=== PATIENT | male | born 1960 | race Caucasian/White ===

== ENCOUNTER 2017-07-26 23:45 | Emergency (ER) | payer OTHER ==
[2017-07-27 02:28] LABS: BUN/Creatinine Ratio 15.3 (8-20); Calcium 8.8 mg/dL (8.6-10.3); EGFR African American 118.7 (>60); EGFR Non-African American 92.3 (>60); Globulin 3.1 g/dL (2-4); Total Bilirubin 0.5 mg/dL (0.2-1.0); Total Protein 7.1 g/dL (6.4-8.9)
[2017-07-27 02:30] LABS: Troponin I 0.01 ng/mL (<0.04)
[2017-07-27] MEDS ORDERED: NS 0.9% 1000 ML* 2,000 ML IV ONE (03:14)
[2017-07-27] MEDS ORDERED: Potassium Chlor TAB* 20 MEQ TAB.ER PO ONE (03:14)
[2017-07-27 04:06] LABS: Hematocrit 42 % (42-52); Mean Corpuscular HGB Conc 35 g/dl (31-36); Mean Corpuscular Hemoglobin 33 pg (27-31); Mean Corpuscular Volume 93 fL (80-94); Mean Platelet Volume 8 um3 (7.4-10.4); Red Blood Count 4.58 10^6/ul (4.0-5.4); Red Cell Distribution Width 14 % (10.5-15); White Blood Count 6.6 10^3/ul (3.5-10.8)
--- NOTE | 2017-07-27 05:16 | ED ---
Tanisha Hawkins Abhishek, scribed for Carlos A Santamaria on 07/27/17 at 0505 . Syncope/Near Syncope - HPI Summary HPI Summary: This patient is a year old M presenting to [facility] accompanied by female with a chief complaint of syncope since today. The CC is described as 4 episodes each lasting about 30 seconds. The patient rates the pain 0/10 in severity. Symptoms aggravated by cough and expiration. Symptoms alleviated by nothing. Pt states clinched jaw during syncope. Patient reports LOC from syncope, and vomiting. Pt denies body aches and pain. - History Of Current Complaint Chief Complaint: EDSyncope Time Seen by Provider: 07/26/17 23:56 Hx Obtained From: Patient Onset/Duration: Sudden Onset Timing: Intermittent Episode Lasting - 30 seconds Context: Witnessed Activity At Onset: Other - coughing and laughing Aggravating Factor(s): Nothing Alleviating Factor(s): Nothing Associated Signs And Symptoms: Other - "clinched jaw" during syncope Frequency: Episodes x___ - 4 - Risk Factors Cardiac Risk Factors: Elevated Lipids - Allergies/Home Medications Allergies/Adverse Reactions: Allergies Allergy/AdvReac Type Severity Reaction Status Date / Time No Known Allergies Allergy Verified 01/07/16 15:12 PMH/Surg Hx/FS Hx/Imm Hx Cardiovascular History: Reports: Hx Hypercholesterolemia, Hx Hypertension Musculoskeletal History: Denies: Hx Rheumatoid Arthritis, Hx Osteoporosis - Surgical History Surgery Procedure, Year, and Place: tonsillectomy Infectious Disease History: No Infectious Disease History: Denies: History Other Infectious Disease, Traveled Outside the [place] in Last 30 Days - Family History Known Family History: Positive: Hypertension - Social History Alcohol Use: Occasionally Substance Use Type: Reports: None Smoking Status (MU): Never Smoked Tobacco Review of Systems Constitutional: Negative Eyes: Negative Positive: Other - "clinched jaw" Respiratory: Negative Positive: Vomiting Genitourinary: Negative Positive: Other - Negative body aches and pain Skin: Negative Positive: Syncope - LOC Psychological: Normal All Other Systems Reviewed And Are Negative: Yes Physical Exam - Summary Physical Exam Summary: Appearance: Well appearing, no pain distress Skin: warm, dry, reflects adequate perfusion Head/face: normal Eyes: EOMI, NEEL ENT: normal Neck: supple, nontender Respiratory: CTA, breath sounds present Cardiovascular: RRR, pulses symmetrical Abdomen: nontender, soft Bowel: present Musculoskeletal: normal, strength/ROM intact Neuro: normal, sensory motor intact, A&Ox3 Triage Information Reviewed: Yes Vital Signs On Initial Exam: Initial Vitals Temp Pulse Resp BP Pulse Ox 97.7 F 71 16 110/58 94 07/26/17 23:54 07/26/17 23:54 07/26/17 23:54 07/26/17 23:54 07/26/17 23:54 Vital Signs Reviewed: Yes Diagnostics - Vital Signs Vital Signs Temp Pulse Resp BP Pulse Ox 07/26/17 23:54 97.7 F 69 16 110/58 95 - Laboratory Lab Results: Lab Results 07/27/17 07/27/17 07/27/17 Range/Units 01:07 01:07 01:07 WBC (3.5-10.8) 10^3/ul RBC (4.0-5.4) 10^6/ul Hgb (14.0-18.0) g/dl Hct (42-52) % MCV (80-94) fL MCH (27-31) pg MCHC (31-36) g/dl RDW (10.5-15) % Plt Count (150-450) 10^3/ul MPV (7.4-10.4) um3 Neut % (Auto) (38-83) % Lymph % (Auto) (25-47) % Dent % (Auto) (1-9) % Eos % (Auto) (0-6) % Baso % (Auto) (0-2) % Absolute Neuts (auto) (1.5-7.7) 10^3/ul Absolute Lymphs (auto) (1.0-4.8) 10^3/ul Absolute Monos (auto) (0-0.8) 10^3/ul Absolute Eos (auto) (0-0.6) 10^3/ul Absolute Basos (auto) (0-0.2) 10^3/ul Absolute Nucleated RBC 10^3/ul Nucleated RBC % INR (Anticoag Therapy) 0.92 (0.89-1.11) APTT 31.0 (26.0-36.3) seconds Sodium 128 L (133-145) mmol/L Potassium 3.0 L (3.5-5.0) mmol/L Chloride 95 L (101-111) mmol/L Carbon Dioxide 23 (22-32) mmol/L Anion Gap 10 (2-11) mmol/L BUN 13 (6-24) mg/dL Creatinine 0.85 (0.67-1.17) mg/dL Est GFR ( Amer) 118.7 (>60) Est GFR (Non-Af Amer) 92.3 (>60) BUN/Creatinine Ratio 15.3 (8-20) Glucose 132 H (70-100) mg/dL Calcium 8.8 (8.6-10.3) mg/dL Total Bilirubin 0.50 (0.2-1.0) mg/dL AST 25 (13-39) U/L ALT 35 (7-52) U/L Alkaline Phosphatase 81 (34-104) U/L Troponin I 0.01 (<0.04) ng/mL B-Natriuretic Peptide 7 ( - 100) pg/mL Total Protein 7.1 (6.4-8.9) g/dL Albumin 4.0 (3.2-5.2) g/dL Globulin 3.1 (2-4) g/dL Albumin/Globulin Ratio 1.3 (1-3) 07/27/17 Range/Units 03:50 WBC 6.6 (3.5-10.8) 10^3/ul RBC 4.58 (4.0-5.4) 10^6/ul Hgb 15.0 (14.0-18.0) g/dl Hct 42 (42-52) % MCV 93 (80-94) fL MCH 33 H (27-31) pg MCHC 35 (31-36) g/dl RDW 14 (10.5-15) % Plt Count 213 (150-450) 10^3/ul MPV 8 (7.4-10.4) um3 Neut % (Auto) 60.7 (38-83) % Lymph % (Auto) 27.4 (25-47) % Dent % (Auto) 7.1 (1-9) % Eos % (Auto) 3.4 (0-6) % Baso % (Auto) 1.4 (0-2) % Absolute Neuts (auto) 4.0 (1.5-7.7) 10^3/ul Absolute Lymphs (auto) 1.8 (1.0-4.8) 10^3/ul Absolute Monos (auto) 0.5 (0-0.8) 10^3/ul Absolute Eos (auto) 0.2 (0-0.6) 10^3/ul Absolute Basos (auto) 0.1 (0-0.2) 10^3/ul Absolute Nucleated RBC 0.01 10^3/ul Nucleated RBC % 0.1 INR (Anticoag Therapy) (0.89-1.11) APTT (26.0-36.3) seconds Sodium (133-145) mmol/L Potassium (3.5-5.0) mmol/L Chloride (101-111) mmol/L Carbon Dioxide (22-32) mmol/L Anion Gap (2-11) mmol/L BUN (6-24) mg/dL Creatinine (0.67-1.17) mg/dL Est GFR ( Amer) (>60) Est GFR (Non-Af Amer) (>60) BUN/Creatinine Ratio (8-20) Glucose (70-100) mg/dL Calcium (8.6-10.3) mg/dL Total Bilirubin (0.2-1.0) mg/dL AST (13-39) U/L ALT (7-52) U/L Alkaline Phosphatase (34-104) U/L Troponin I (<0.04) ng/mL B-Natriuretic Peptide ( - 100) pg/mL Total Protein (6.4-8.9) g/dL Albumin (3.2-5.2) g/dL Globulin (2-4) g/dL Albumin/Globulin Ratio (1-3) Result Diagrams: 07/27/17 03:50 07/27/17 01:07 Lab Statement: Any lab studies that have been ordered have been reviewed, and results considered in the medical decision making process. - Radiology Chest X-ray Radiology Interpretation Completed By: ED Physician - Negative - CT Brain CT CT Interpretation Completed By: Radiologist - Brain CT reveals no acute intracranial pathology ED physician has reviewed this radiology report and agrees. - EKG 0024 EKG Interpretation: sinus rhythm, and no acute changes Course/Dx Course Of Treatment: This patient is a 57 year old M presenting to [facility] accompanied by female with a chief complaint of syncope since today. The CC is described as 4 episodes each lasting about 30 seconds. Pt states clinched jaw during syncope. Patient reports LOC from syncope, and vomiting. Pt denies body aches and pain. An EKG reveals sinus rhythm and no acute changes. CXR reveals negative findings. Brain CT reveals no acute intracranial pathology. Pt will be discharged with follow up from PCP within 3 days. Dx is cough, vasovagal syncope, and hypokalemia. Pt is agreeable with this plan. - Diagnoses Differential Diagnosis/HQI/PQRI: Positive: Cerebral Vascular Accident, Dysrhythmia, Hypovolemia, Transient Ischemic Attack, Vasovagal Episode Provider Diagnoses: Hypokalemia, Vasovagal syncope, Cough Discharge - Discharge Plan Condition: Stable Disposition: HOME Prescriptions: Benzonatate [TESSALON 200 MG CAP] 200 mg PO TID #20 cap Patient Education Materials: Hypokalemia (ED), Syncope (ED), Cold Symptoms (ED) Referrals: Non Staff,Doctor [Primary Care Provider] - (Follow up with PCP within 3 days.) The documentation as recorded by the Tanisha liao Abhishek accurately reflects the service I personally performed and the decisions made by Hina tiwari Emmanuel.
[2017-07-27 05:35] VITALS: BP 117/63
--- NOTE | 2017-07-27 07:52 | RAD ---
HISTORY: Cough COMPARISONS: None VIEWS: 4: Frontal dual-energy and lateral views of the chest. FINDINGS: CARDIOMEDIASTINAL SILHOUETTE: The cardiomediastinal silhouette is normal. MAURICIO: The mauricio are normal. PLEURA: The costophrenic angles are sharp. No pleural abnormalities are noted. LUNG PARENCHYMA: The lungs are clear. ABDOMEN: The upper abdomen is clear. There is no subphrenic gas. BONES AND SOFT TISSUES: No bone or soft tissue abnormalities are noted. OTHER: None. IMPRESSION: NO ACTIVE CARDIOPULMONARY DISEASE.
--- NOTE | 2017-07-27 07:54 | RAD ---
HISTORY: Syncope, seizure COMPARISONS: None TECHNIQUE: Multiple contiguous axial CT scans were obtained of the head without intravenous contrast. FINDINGS: HEMORRHAGE/INFARCT: There is no hemorrhage or acute infarct. MASSES/SHIFT: There is no mass or shift. EXTRA-AXIAL SPACES: There are no extra-axial fluid collections. SULCI AND VENTRICLES: The sulci and ventricles are normal in size and position for the patient's stated age. CEREBRUM: There are no focal parenchymal abnormalities. BRAINSTEM: There are no focal parenchymal abnormalities. CEREBELLUM: There are no focal parenchymal abnormalities. VESSELS: The vessels are grossly normal. PARANASAL SINUSES: The paranasal sinuses are clear. There is a small right mastoid effusion. ORBITS: The orbits are unremarkable. BONES AND SOFT TISSUE: No bone or soft tissue abnormalities are noted. OTHER: None IMPRESSION: NO ACUTE INTRACRANIAL PATHOLOGY.
== END 2017-07-27 05:41 | disposition home or self-care (01) ==
LOC: ED 23:45
DX: E87.6 Hypokalemia (principal); R55 Syncope and collapse; R05 Cough; R11.10 Vomiting, unspecified
CPT/HCPCS: 36415; 70450; 71020; 80053; 83880; 84484; 85025; 85610; 85730; 93005; 99283; A9270-GY

== ENCOUNTER 2017-10-07 15:52 | Emergency (ER) | payer OTHER ==
[2017-10-07 16:04] VITALS: BP 167/100
--- NOTE | 2017-10-07 16:24 | UC ---
Cardiac HPI - HPI Summary HPI Summary: 57 yo male with a one month hx of right lower chest pain which occurs if he bends over or twists pain lasts 1-2 seconds occurs 3-5 x day uses treadmill with dyspnea or pain for years he has felt winded going up steep hills...this has not worsened rare cough no fever - History of Current Complaint Chief Complaint: UCChestPain Stated Complaint: CHEST PAIN,SOB,COUGH Time Seen by Provider: 10/07/17 16:02 Hx Obtained From: Patient Onset/Duration: Gradual Onset, Lasting Weeks Timing: Intermittent Episodes Lasting: - 1-2 seconds Initial Severity: Mild Current Severity: None Pain Intensity: 0 Chest Pain Location: Discrete at: - right lower ches Character: Sharp/Stabbing Aggravating Factor(s): Other - 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 Alleviating Factor(s): Position Associated Signs & Symptoms: Positive: Chest Pain - Allergy/Home Medications Allergies/Adverse Reactions: Allergies Allergy/AdvReac Type Severity Reaction Status Date / Time No Known Allergies Allergy Verified 10/07/17 16:04 Home Medications: Home Medications Aspirin [Aspirin 81 MG TAB] 81 mg PO DAILY 10/07/17 [History Confirmed 10/07/17] PMH/Surg Hx/FS Hx/Imm Hx Previously Healthy: Yes - gout Cardiovascular History: Hypertension - Surgical History Surgical History: Yes Surgery Procedure, Year, and Place: tonsillectomy - Family History Known Family History: Positive: Hypertension - Social History Alcohol Use: Daily Alcohol Amount: 1-2 beers per day Substance Use Type: None Smoking Status (MU): Never Smoked Tobacco - Immunization History Most Recent Influenza Vaccination: 2017 Review of Systems Constitutional: Negative Skin: Negative Eyes: Negative ENT: Negative Respiratory: Negative Cardiovascular: Chest Pain Gastrointestinal: Negative Genitourinary: Negative Motor: Negative Neurovascular: Negative Musculoskeletal: Negative Neurological: Negative Psychological: Negative Is Patient Immunocompromised?: No All Other Systems Reviewed And Are Negative: Yes Physical Exam Triage Information Reviewed: Yes Appearance: Well-Appearing, No Pain Distress, Well-Nourished Vital Signs: Initial Vital Signs Temp 97.7 F 10/07/17 15:57 Pulse 88 10/07/17 15:57 Resp 18 10/07/17 15:57 BP 167/100 10/07/17 15:57 Pulse Ox 97 10/07/17 15:57 Eyes: Positive: Conjunctiva Clear ENT: Positive: Normal ENT inspection, Hearing grossly normal Neck: Positive: Supple, Nontender, No Lymphadenopathy Respiratory: Positive: Lungs clear, Normal breath sounds, No respiratory distress, No accessory muscle use. Negative: Chest non-tender Cardiovascular: Positive: RRR, No Murmur, Pulses Normal Abdomen Description: Positive: Nontender, No Organomegaly. Negative: CVA Tenderness (R), CVA Tenderness (L) Bowel Sounds: Positive: Present Musculoskeletal: Positive: No Edema Neurological: Positive: Alert Psychological Exam: Normal Skin Exam: Normal Diagnostics - Radiology No standard instances Xray Interpretation: No Acute Changes Radiology Interpretation Completed By: Radiologist - EKG Cardiac Rate: NL Cardiac Rhythm: Sinus: Normal Ectopy: None ST Segment: Normal - Clinical Impression Provider Diagnoses: CHEST WALL PAIN. POORLY CONTROLLED HTN Discharge - Discharge Plan Condition: Stable Disposition: HOME Patient Education Materials: Chest Wall Pain (ED) Referrals: Non Staff,Doctor [Medical Doctor] - 2 Weeks (your bp was 167/100) Additional Instructions: see your provider about your BP You may have obstructive sleep apnea ask you provider if you need a SLEEP STUDY Images Front/Back of Body, Lg (Blair): 1 - TENDER
--- NOTE | 2017-10-07 16:27 | RAD ---
HISTORY: Shortness of breath COMPARISONS: July 27, 2017 VIEWS: 4: Frontal dual-energy and lateral views of the chest. FINDINGS: CARDIOMEDIASTINAL SILHOUETTE: The cardiomediastinal silhouette is normal. MAURICIO: The mauricio are normal. PLEURA: The costophrenic angles are sharp. No pleural abnormalities are noted. LUNG PARENCHYMA: The lungs are clear. ABDOMEN: The upper abdomen is clear. There is no subphrenic gas. BONES AND SOFT TISSUES: Degenerative changes are noted along the spine. There is remote posttraumatic deformity to the right hemithorax. OTHER: None. IMPRESSION: NO ACTIVE CARDIOPULMONARY DISEASE.
== END 2017-10-07 17:00 | disposition home or self-care (01) ==
LOC: UCEAST 15:52
DX: R07.89 Other chest pain (principal); R06.02 Shortness of breath; I10 Essential (primary) hypertension; M10.9 Gout, unspecified; Z79.82 Long term (current) use of aspirin
CPT/HCPCS: 71046; 93005; 99211; G0463

== ENCOUNTER 2018-04-14 12:51 | Emergency (ER) | payer OTHER ==
[2018-04-14 13:04] VITALS: BP 128/90
--- NOTE | 2018-04-14 13:14 | UC ---
Eye Complaint HPI - HPI Summary HPI Summary: This patient is a 57 year old M presenting to [facility] [place] [place] c/o bilateral eye redness and discharge that began one day ago. Pt states that he had a sore throat 2-3 days ago but it is getting better. He also has tubes in his ears that he states are draining. The patient rates the pain 0/10 in severity. Patient denies ear pain. - History of Current Complaint Chief Complaint: UCEye Stated Complaint: EYE ISSUE Time Seen by Provider: 04/14/18 13:04 Hx Obtained From: Patient Onset/Duration: Lasting Days, Still Present Timing: Constant Severity Currently: None Pain Intensity: 0 Pain Scale Used: 0-10 Numeric Location of Injury: Conjunctiva Associated Signs And Symptoms: Positive: Negative - fever. Negative: Drainage ( Clear) - Allergies/Home Medications Allergies/Adverse Reactions: Allergies Allergy/AdvReac Type Severity Reaction Status Date / Time Penicillins Allergy unk Verified 04/14/18 13:04 Home Medications: Home Medications Allopurinol TAB* [Zyloprim 300 MG TAB*] 300 mg PO DAILY 04/14/18 [History Confirmed 04/14/18] Aspirin 81 mg CHEW TAB* 81 mg PO DAILY 04/14/18 [History Confirmed 04/14/18] Omeprazole 20 mg PO DAILY 04/14/18 [History Confirmed 04/14/18] PMH/Surg Hx/FS Hx/Imm Hx Cardiovascular History: Hypertension Other History Of: Negative For: Anticoagulant Therapy - Surgical History Surgical History: Yes Surgery Procedure, Year, and Place: tonsillectomy - Family History Known Family History: Positive: Cardiac Disease, Hypertension - Social History Lives: With Family Alcohol Use: Daily Alcohol Amount: 1-2 beers per day Substance Use Type: None Smoking Status (MU): Never Smoked Tobacco - Immunization History Most Recent Influenza Vaccination: 2017 Review of Systems Eyes: Drainage, Eye Redness ENT: Sore Throat All Other Systems Reviewed And Are Negative: Yes Physical Exam - Summary Physical Exam Summary: VITAL SIGNS: Reviewed. GENERAL: Patient is a well-developed and nourished male who is lying comfortable in the stretcher. Patient is not in any acute respiratory distress. HEAD AND FACE: Normocephalic EYES: PERRLA, EOMI x 2. Bilateral injected conjunctiva, there is some dry discharge in the right eye EARS: Hearing grossly intact. MOUTH: Oropharynx within normal limits. NECK: Supple, trachea is midline, no adenopathy, no JVD, no carotid bruit. CHEST: Symmetric, no tenderness at palpation LUNGS: Clear to auscultation bilaterally. No wheezing or crackles. CVS: Regular rate and rhythm, S1 and S2 present, no murmurs or gallops appreciated. ABDOMEN: Soft, non-tender. Bowel sounds are normal. No abdominal abnormal pulsations. EXTREMITIES: Full ROM in all major joints, no edema, no cyanosis or clubbing. NEURO: Alert and oriented x 3. No acute neurological deficits. Speech is normal and follows commands. SKIN: Dry and warm Triage Information Reviewed: Yes Vital Signs: Initial Vital Signs Temp 98 F 04/14/18 13:01 Pulse 100 04/14/18 13:01 Resp 20 04/14/18 13:01 BP 128/90 04/14/18 13:01 Pulse Ox 98 04/14/18 13:01 Vital Signs Reviewed: Yes Eye Complaint Course/Dx - Course Course Of Treatment: Patient is a 57-year-old male with bilateral conjunctivitis. Patient was given a prescription for ciprofloxacin ophthalmic. Patient will be discharged home with follow-up with PCP in the next 2-3 days. Patient is hemodynamically stable alert and oriented 3. - Differential Dx/Diagnosis Provider Diagnoses: Conjunctivitis Discharge - Sign-Out/Discharge Documenting (check all that apply): Patient Departure - Discharge Plan Condition: Stable Disposition: HOME Prescriptions: Ciprofloxacin 0.3% OPTH.RACHAEL* [Cipro 0.3% Opth*] 1 drop BOTH EYES Q2H #1 btl Patient Education Materials: Conjunctivitis (ED) Referrals: [facility] [place] PHYSICIAN REFERRAL [Outside] No Primary Care Phys,NOPCP [Primary Care Provider] - Additional Instructions: Take medications as instructed and adhere to plan Take Acetaminophen or ibuprofen for pain or fever Increase your fluid intake Return to the or go to the emergency department if symptoms worsen Follow-up with primary care physician in next 2-3 days - Billing Disposition and Condition Condition: STABLE Disposition: Home
== END 2018-04-14 13:23 | disposition home or self-care (01) ==
LOC: UCEAST 12:51
DX: H10.33 Unspecified acute conjunctivitis, bilateral (principal); J02.9 Acute pharyngitis, unspecified; I10 Essential (primary) hypertension; Z88.0 Allergy status to penicillin; Z82.49 Family history of ischemic heart disease and other diseases of the circulatory system
CPT/HCPCS: 99212; G0463